=== PATIENT | male | born 1955 | race Caucasian/White ===

== ENCOUNTER 2020-11-05 21:05 | Emergency (ER) | payer OTHER, SELFPAY ==
[~2020-11-05 21:05] MED LIST: Iopamidol 370 76% 125 ML VIAL FS ONE; Sodium Chloride 0.9% 1,000 ML BAG ONE; Sodium Chloride 0.9% 100 ML BAG ONE
[2020-11-05 21:33] LABS: #Basophils 0.1 thou/uL (0.0-0.2); #Lymphocytes 2.4 thou/uL (1.20-3.40); #Monocytes 0.9 thou/uL (0.11-0.59); #Neutrophils 7.6 thou/uL (1.40-6.50); %Basophils 0.8 % (0.0-1.0); %Eosinophils 15.4 % (0.0-10.0); %Lymphocytes 18.4 % (21.0-51.0); %Monocytes 6.9 % (0.0-10.0); %Neutrophils 58.4 % (42.0-75.0); Hemoglobin 12.8 g/dL (14.0-18.0); Mean Corpuscular HGB CONC 31.9 g/dL (32.0-36.0); Mean Corpuscular Hemoglobin 28.3 pg (27.0-31.0); Mean Corpuscular Volume 88.6 fL (78.0-98.0); Mean Platelet Volume 8.2 fL (7.4-10.4); Platelet Count 284 thou/uL (130-400); Red Blood Cell (RBC) Count 4.53 mill/uL (4.70-6.10)
[2020-11-05] MEDS ORDERED: Morphine 4 MG/ML VIAL ONE (21:39)
[2020-11-05] MEDS ORDERED: Aspirin Chewable 81 MG TAB ONE (21:40)
[2020-11-05 21:51] LABS: ALT (SGPT) 16 U/L (8-55); AST (SGOT) 16 U/L (5-34); Albumin 4.1 g/dL (3.4-4.8); Alkaline Phosphatase 83 U/L (40-110); Anion Gap 16 mmol/L (10-20); BUN (Urea Nitrogen) 19 mg/dL (8.4-25.7); Bilirubin, Total 0.5 mg/dL (0.2-1.2); Calc. Creatinine Clearance 0 mL/min (70-130); Calcium 9.3 mg/dL (7.8-10.44); Carbon Dioxide 24 mmol/L (23-31); Chloride 104 mmol/L (98-107); Globulin 3.7 g/dL (2.4-3.5); Glucose 126 mg/dL (80-115); Potassium 3.9 mmol/L (3.5-5.1); Protein, Total 7.8 g/dL (5.8-8.1); Sodium 140 mmol/L (136-145)
[2020-11-05 21:58] LABS: CKMB 0.5 ng/mL (0-6.6)
[2020-11-05 22:07] LABS: Bilirubin Negative (Negative); Blood, Urine Trace (Negative); Clarity Clear (Clear); Glucose, Urine (Dipstick) Negative (Negative); Ketone, Urine Trace mg/dL (Negative); Leukocyte Negative (Negative); Nitrite Negative (Negative); Protein, Urine (Dipstick) Negative (Neg-Trace); pH, Urine 5.5 (5.0-9.0)
[2020-11-05 22:09] LABS: Specific Gravity, Urine 1.023 (1.002-1.036)
[2020-11-05 22:17] LABS: RBC/HPF 0-3 HPF (0-3)
[2020-11-05 22:18] LABS: Amphetamine Not Detected (NotDetected); Bacteria/HPF Rare-Few HPF (None Seen); Barbiturates Screen Not Detected (NotDetected); Benzodiazepine Screen Not Detected (NotDetected); Cocaine Metabolite Screen Not Detected (NotDetected); Medtox Control Line Valid? VALID (VALID); Methadone Not Detected (NotDetected); Methamphetamine Not Detected (NotDetected); Mucous/LPF 1+ LPF (<2+); Opiate Screen Detected (NotDetected); Oxycodone Screen Not Detected (NotDetected); Phencyclidine (PCP) Not Detected (NotDetected); Squamous Epithelial 0-3 HPF (0-3); THC/Cannabinoid Screen Not Detected (NotDetected); Tricyclic Screen Not Detected (NotDetected)
--- NOTE | 2020-11-05 22:22 | RAD ---
Portable frontal chest radiograph: 11/05/2020 COMPARISON: None HISTORY: Chest pain FINDINGS: There is a hazy area of focal opacity in the mid right lung zone laterally measuring 3.3 cm . No pneumothorax, pleural fluid, lobar consolidation, or alveolar edema. IMPRESSION: Hazy focal area of peripheral increased density in the mid right lung zone. This may sign darío infectious pneumonitis. Underlying mass lesion cannot be excluded. Recommend short-term follow-up imaging of the chest following treatment to document resolution. If this opacity persists o n follow-up chest x-ray following treatment, CT advised CODE T Code LN
--- NOTE | 2020-11-05 23:13 | CT ---
CT angiogram of the chest: 11/05/2020 COMPARISON: None HISTORY: Chest pain TECHNIQUE: Axial CT imaging at 2.5 mm intervals through the chest with IV contrast using CT angiogram protocol. Coronal and sagittal 3-D reformatted imaging obtained. FINDINGS: Limited assessment of the upper abdomen demonstrates no acute findings. No pleural, pericardial, or mediastinal fluid is evident. No axillary, left hilar, or mediastinal lymphadenopathy is evident. Mild right hilar prominence measu ring 1.8 cm. There is no pulmonary arterial filling defect seen within the pulmonary arterial trunk or either main pulmonary artery. The lobar and segmental pulmonary arteries supplying the left lung demonstrate no discrete evidence for pulmonary arterial embolism. Pulmonary arterial branches supplying the right lower lobe, right middle lobe, and right upper lobe a ppear grossly unremarkable. There is a masslike area of wedge shaped peripheral opacity within the inferior lateral aspect of the right upper lobe measuring 2.7 cm in AP dimension, 3 cm in transverse dimension, and 2.7 cm in craniocaudal dimension. This peripheral masslike opacity demonstrates central low density with Hounsf ield units in the 5-T10 range. Along the medial margin of this abnormality there is a irregular somewhat spiculated configuration, best seen on coronal image 61. There is no pneumothorax seen on either side. There is nonspecific ill-defined patchy opacity within the inferior aspect of the lingula suggesting scar and/or volume loss. No endobronchial lesion is evident on this exam. Review of the osseous structures demonstrates no worrisome lytic or blastic bone lesions. There is a 6 mm nodule in the medial right upper lobe/apex on axial image 19. IMPRESSION: No evidence for pulmonary arterial embolism. There is a peripheral masslike opacity within the inferior lateral aspect of the right upper lobe. It s medial spiculated margin makes this lesion most concerning for bronchogenic carcinoma. Low density within the central and peripheral aspect of the lesion may signify necrosis. A less likely po ssibility is a low-density/necrotic infection. Mild prominence of a right hilar node may signify metastatic disease. Additional small nodule in the right lung apex for which short-term follow-up CT is advised in 3-[address] Grijalva made aware at 11:08 PM 11/05/2020
== END 2020-11-06 01:01 | disposition home or self-care (01) ==
LOC: MADERS 21:05
DX: J18.9 Pneumonia, unspecified organism (principal); R91.8 Other nonspecific abnormal finding of lung field; F17.290 Nicotine dependence, other tobacco product, uncomplicated
CPT/HCPCS: 71045; 71275; 80053; 80306; 81003; 81015; 82550; 82553; 83605; 84443; 84484; 85025; 85379; 86140; 93005; 94760; 96365; 96366; 96375; J1956; J2270; J3490; J7050; Q9967

== ENCOUNTER 2021-02-16 09:28 | Emergency (ER) | payer OTHER | END 2021-02-16 10:57 | disposition left against medical advice (07) | LOC: MADERS 09:28 | DX: M25.512 Pain in left shoulder (principal); F17.210 Nicotine dependence, cigarettes, uncomplicated | CPT/HCPCS: 99283 ==

== ENCOUNTER 2022-08-19 13:47 | Outpatient (CLI) | payer OTHER ==
[~2022-08-19 13:47] MED LIST changes: +Iopamidol 370 76% 100 ML VIAL ONE; -Iopamidol 370 76% 125 ML VIAL FS ONE; -Sodium Chloride 0.9% 1,000 ML BAG ONE; -Sodium Chloride 0.9% 100 ML BAG ONE
== END 2022-08-19 13:48 | disposition home or self-care (01) ==
LOC: MADCT 13:47
PROVIDERS: ATTEND Family Medicine
DX: R91.8 Other nonspecific abnormal finding of lung field (principal)
CPT/HCPCS: 36415; 71260; 82565; Q9967

== ENCOUNTER 2022-08-21 14:53 | Outpatient (CLI) | payer OTHER | END 2022-08-21 14:54 | disposition home or self-care (01) | LOC: MADCT 14:53 | PROVIDERS: ATTEND Family Medicine | DX: M54.6 Pain in thoracic spine (principal); R91.1 Solitary pulmonary nodule; F17.200 Nicotine dependence, unspecified, uncomplicated; Z90.5 Acquired absence of kidney; Z85.528 Personal history of other malignant neoplasm of kidney | CPT/HCPCS: 74160; Q9967 ==